=== PATIENT | male | born 1975 | race Caucasian/White ===

== ENCOUNTER 2019-01-17 10:15 | Emergency (ER) | payer OTHER ==
[~2019-01-17] VITALS: Ht 180.3 cm; Wt 82.1 kg
[2019-01-17 10:18] VITALS: Ht 180.3 cm; Wt 82.1 kg
[2019-01-17 11:03] LABS: CALCIUM 8.7 mg/dL (8.5-10.1); CARBON DIOXIDE 26.5 mmol/L (21-32); CHLORIDE SERUM 106 mmol/L (98-107); GFR1 > 60 mL/min; GLUCOSE SERUM 123 mg/dL (74-106); POTASSIUM SERUM 3.6 mmol/L (3.5-5.1); SODIUM SERUM 143 mmol/L (136-145)
[2019-01-17 11:04] LABS: BASOPHIL % 0.5 % (0-2); PLATELET COUNT 301 x10^3mcL (130-400); RED CELL DISTRIBUTION WIDTH 12.1 % (11.5-14.5)
[2019-01-17 11:07] LABS: ALKALINE PHOSPHATASE 86 U/L (46-116); ALT/SGPT 15 U/L (16-63); AST/SGOT 7 U/L (15-37); BILIRUBIN TOTAL 0.4 mg/dL (0.20-1.00); LIPASE 88 IU/L (73-393); TOTAL PROTEIN, SERUM 7.6 g/dL (6.4-8.2)
[2019-01-17 11:11] LABS: ALBUMIN 3.2 g/dL (3.4-5.0)
[2019-01-17 11:14] VITALS: BP 122/79
== END 2019-01-17 11:14 | disposition left against medical advice (07) ==
LOC: ED 10:15
PROVIDERS: Emergency Medicine
DX: K61.0 Anal abscess (principal); T39.1X1A Poisoning by 4-Aminophenol derivatives, accidental (unintentional), initial encounter; F17.210 Nicotine dependence, cigarettes, uncomplicated; Z90.89 Acquired absence of other organs; Y92.89 Other specified places as the place of occurrence of the external cause
CPT/HCPCS: 36415; G0480; J7030

== ENCOUNTER 2019-01-18 14:50 | Inpatient (IN) | payer OTHER ==
[~2019-01-18] VITALS: Ht 180.3 cm; Wt 83.9 kg
[2019-01-18 14:54] VITALS: Ht 180.3 cm; Wt 83.9 kg
--- NOTE | 2019-01-18 15:05 | NUR ---
RECEIVED PATIENT FROM TRIAGE, PATIENT AMBULATED TO ROOM 9. PATIENT C/O ABSCESS TO RIGHT BUTTOCK. STATES HE WAS SEEN HERE YESTERDAY FOR FEVER AND BACK PAIN, BUT DURING ASSESSMENT, DOCTOR NOTED AN ABSCESS TO RIGHT BUTTOCK. PATIENT IS AAO X 4 (NAME, DATE, TIME AND CONDITION). EYES - IZZY. MUCU S- PINK. LUNGS - CTA. BS PRESENT X 4 QUADRANTS. B/L UPPER AND LOWER EXT PULSES PALPABLE. WILL CONTINUE TO MONITOR.//AUG RN
--- NOTE | 2019-01-18 15:35 | NUR ---
DR CHRISTIANSEN AT BEDSIDE FOR EVAL AT THIS TIME, APR RN AT BEDSIDE PHYTOPATHOLOGY TEACHER.//APR RN
[2019-01-18 16:13] LABS: BASOPHIL % 0.4 % (0-2); PLATELET COUNT 363 x10^3mcL (130-400); RED CELL DISTRIBUTION WIDTH 11.9 % (11.5-14.5)
[2019-01-18 16:35] LABS: CALCIUM 8.6 mg/dL (8.5-10.1); CARBON DIOXIDE 27.5 mmol/L (21-32); CHLORIDE SERUM 106 mmol/L (98-107); CREATININE SERUM 0.8 mg/dL (0.7-1.3); GFR1 > 60 mL/min; GLUCOSE SERUM 107 mg/dL (74-106); POTASSIUM SERUM 3.7 mmol/L (3.5-5.1); SODIUM SERUM 143 mmol/L (136-145)
[2019-01-18 16:42] LABS: ALKALINE PHOSPHATASE 78 U/L (46-116); ALT/SGPT 16 U/L (16-63); AST/SGOT 10 U/L (15-37); BILIRUBIN TOTAL 0.5 mg/dL (0.20-1.00); TOTAL PROTEIN, SERUM 7.1 g/dL (6.4-8.2)
[2019-01-18 16:49] LABS: ALBUMIN 2.9 g/dL (3.4-5.0)
[2019-01-18 16:52] LABS: T3 TOTAL 0.99 ng/mL
[2019-01-18 16:56] LABS: C REACTIVE PROTEIN 35.9 mg/dL (<=0.9)
[2019-01-18 16:58] LABS: CK-MB < 0.5 ng/mL (0-3.6); CREATINE KINASE 41 U/L (39-308)
[2019-01-18 17:12] LABS: ERYTHROCYTE SED RATE 45 mm/hr (0-15)
[2019-01-18 17:15] LABS: FREE T4 1.68 ng/dL (0.76-1.46); T4(THYROXINE) 10.9 ug/dL (4.7-13.3)
--- NOTE | 2019-01-18 17:38 | NUR ---
MOMO RN FROM OR AT BEDSIDE, REPORT GIVEN. PATIENT TAKEN TO OR AT THIS TIME//APR RN
[2019-01-18 19:25] VITALS: BP 103/64
--- NOTE | 2019-01-18 19:40 | NUR ---
REC'D REPORT FROM [facility]. PT RESTING IN BED. AAOX4, SPEECH CLEAR, FOLLOWS COMMANDS. WEARING SUNGLASSES. DENIES PHOTOPHOBIA. DENIES RESP DISTRESS OR SOB. BREATHING EVEN/UNLABORED ON RA. MED SURG, NO TELE. DENIES CP, DIZZINESS, OR PALPITATIONS. ABD SOFT/ROUND/NONTENDER. DENIES ABD PAIN, TENDERNESS, OR N/V. S/P PERIRECTAL I&D. DRESSING TO BUTTOCKS IN PLACE, SEROSANGUINEOUS FLUID. DRESSING SECURED WITH UNDERWEAR. NO VOID YET. USUALLY AMBULATORY. IV TO RAC FLUSHED AND PATENT, SITE WNL. ORIENTED TO DEVICES AND SURROUNDINGS. CALL LIGHT WITHIN REACH, BED AT LOWEST POSITION. WILL CONTINUE TO MONITOR.
--- NOTE | 2019-01-18 19:42 | NUR ---
RECEIVED PT FROM OR, PT ADMIT FOR RECTAL ABSCESS, S/P I&D, PT IS A/O X4, VERBAL RESPONSIVE, ABLE TO TELL WHAT HE NEEDS. LUNG SOUND CLEAR BILATERAL,NO COUGH, NO SOB, PT DENY ANY CHEST PAIN, BOWEL SOUND PRESENT ALL 4 QUADRANTS, NO DISTENTION, NO TENDER. PEDAL PULSE PRESENT BOTH FEET, NO EDEMA, IV AT RIGHT AC,NO LEAKING, NO INFILTRATION. RECTAL S/P I&D, DRESSING INTACT, MINIMAL DRAINAGE, FIRST DRESSING, UNABLE TO REMOVE DRESSING, ALL ADLS ASSIST, ALL NEED MET, CALL LIGHT IN REACH, WILL CONTINUE TO MONITOR.
[2019-01-18 21:00] VITALS: BP 98/56
--- NOTE | 2019-01-18 21:20 | NUR ---
PT REQUESTING FOR [facility]. NO [facility] AVAILABLE. PT STATED HE WILL LEAVE BC HIS [employer] IS IN HIS CAR AND REQUIRES THE [employer] TO CONDUCT BUSINESS. PT STARTED GETTING UP TO GATHER HIS BELONGINGS. INFORMED PT IF HE LEAVES, HE WILL NOT GET ANY ANTIBIOTICS OR THE DAILY DRESSING CHANGES HE NEEDS. PT STATED "IT'S OKAY IT'S JUST A MINOR SURGERY. I'M READY TO LEAVE." SPOKE TO CHARGE NURSE, VERNON. VERNON SAID SECURITY AND RN ABLE TO ESCORT PT TO CAR TO RETRIEVE [employer]. SPOKE TO PATIENT AND MADE AWARE. PT STATED HE IS ABLE TO WAIT. IV TO RAC IN PLACE. SECURITY CALLED.
--- NOTE | 2019-01-18 21:25 | NUR ---
WENT IN ACCOMPANIED BY SECURITY. PT NOT IN THE ROOM. GOWN AT BEDSIDE. NO BELONGINGS PRESENT. CHARGE NURSE AND DIRECTOR STYLE MADE AWARE. WENT WITH SECURITY AND RN X3 TO LOOK FOR PATIENT DOWNSTAIRS INCLUDING PARKING LOT. PT NOT FOUND ANYWHERE [id number] ATTEMPTED TO CALL PT'S PHONE BUT OFF. PT'S MOTHER RIC, NEXT OF KIN, NOTIFIED PT ELOPED WITH IV IN PLACE. INFORMED HER TO TRY TO GET IN CONTACT WITH THE PATIENT TO COME BACK AND GET IV REMOVED.
--- NOTE | 2019-01-18 21:38 | NUR ---
[facility] CONTACTED. STATED WILL HAVE AN OFFICER SEARCH THE AREA FOR THE PT
--- NOTE | 2019-01-18 22:36 | NUR ---
RECEIVED THE CALL FROM PT, HE STATE HE ALREADY REMOVED THE IV BY HIMSELF AND HE DOESN'T WANT TO COME BACK TO HOSPITAL. INFOMR THE [facility].
--- NOTE | 2019-01-19 08:44 | NUR ---
WOUND CARE EVALUATION NOT DONE. PT ELOPEMENT 01/18/19.
== END 2019-01-18 21:25 | disposition left against medical advice (07) | DRG 346 ==
LOC: ED 14:50 → MU 17:27
PROVIDERS: Specialist; Surgery; ADMIT Internal Medicine
PROC: 0D9P0ZZ Drainage of Rectum, Open Approach (ICD-10-PCS; principal; 2019-01-18 17:30)
DX: K61.1 Rectal abscess (principal); Z90.49 Acquired absence of other specified parts of digestive tract; F17.200 Nicotine dependence, unspecified, uncomplicated; Z53.21 Procedure and treatment not carried out due to patient leaving prior to being seen by health care provider
CPT/HCPCS: 84439; G0378; G0480; J2175; J2250; J2270; J2405; J2543; J2704; J3010; J3490; J7120